=== PATIENT | male | born 1935 | race Caucasian/White ===

== ENCOUNTER → 2017-04-07 | Outpatient (CLI) | payer MEDICARE ==
[2017-04-07 12:33] LABS: MEAN CELL VOLUME 93.7 fL (80-100); MEAN CORPUSCULAR HEMOGLOBIN 30.2 pg (25-34); MEAN CORPUSCULAR HGB CONC 32.2 g/dl (32-36); MEAN PLATELET VOLUME 10.7 fL (7.4-10.4); PLATELET COUNT 208 K/uL (130-400); RED BLOOD COUNT 5.23 M/uL (4.7-6.1); WHITE BLOOD COUNT 9.13 K/uL (4.8-10.8)
[2017-04-07 13:29] LABS: ESTIMATED AVERAGE GLUCOSE 128 mg/dl; HA1C FLAG Normal (Normal)
[2017-04-07 16:03] LABS: ALKALINE PHOSPHATASE 68 U/L (45-117); ALT/SGPT 17 U/L (12-78); AST/SGOT 14 U/L (15-37); BLOOD UREA NITROGEN 15 mg/dl (7-18); BUN/CREATININE RATIO 13.9 (10-20); CALCIUM 8.5 mg/dl (8.5-10.1); CARBON DIOXIDE 27 mmol/L (21-32); CHLORIDE 109 mmol/L (98-107); CREATININE 1.08 mg/dl (0.60-1.40); GLUCOSE,FASTING 88 mg/dl (70-99); HDL CHOLESTEROL 49 mg/dl; MAGNESIUM 2.1 mg/dl (1.8-2.4); POTASSIUM 4.1 mmol/L (3.5-5.1); SODIUM 142 mmol/L (136-145)
[2017-04-07 16:08] LABS: CHOLESTEROL 127 mg/dl (0-200); CHOLESTEROL/HDL RATIO 2.6; TRIGLYCERIDES 79 mg/dl (0-150); VERY LOW DENSITY LIPOPROT CALC 16 mg/dl
== END | disposition home or self-care (01) ==
LOC: C.LABPBG 08:56
PROVIDERS: ATTEND Internal Medicine Cardiovascular Disease
DX: I49.8 Other specified cardiac arrhythmias (principal); I25.10 Atherosclerotic heart disease of native coronary artery without angina pectoris; R06.02 Shortness of breath; I47.1 Supraventricular tachycardia; R00.2 Palpitations

== ENCOUNTER → 2017-05-05 | Outpatient (CLI) | payer MEDICARE ==
[2017-05-05 12:48] LABS: BLOOD UREA NITROGEN 14 mg/dl (7-18); BUN/CREATININE RATIO 12.7 (10-20); CALCIUM 9.1 mg/dl (8.5-10.1); CARBON DIOXIDE 30 mmol/L (21-32); CHLORIDE 104 mmol/L (98-107); CREATININE 1.07 mg/dl (0.60-1.40); GLUCOSE 104 mg/dl (70-99); MAGNESIUM 2.3 mg/dl (1.8-2.4); POTASSIUM 4.1 mmol/L (3.5-5.1); SODIUM 141 mmol/L (136-145)
== END | disposition home or self-care (01) ==
LOC: C.LABPBG 09:27
PROVIDERS: ATTEND Internal Medicine Cardiovascular Disease
DX: E78.5 Hyperlipidemia, unspecified (principal); R06.02 Shortness of breath; Z79.899 Other long term (current) drug therapy

== ENCOUNTER → 2017-08-04 | Outpatient (CLI) | payer MEDICARE ==
[2017-08-04 12:33] LABS: HEMATOCRIT 50.6 % (42-52); HEMOGLOBIN 16.4 g/dL (14.0-18.0); MEAN CORPUSCULAR HEMOGLOBIN 31.1 pg (25-34); MEAN CORPUSCULAR HGB CONC 32.4 g/dl (32-36); MEAN PLATELET VOLUME 10.7 fL (7.4-10.4); PLATELET COUNT 170 K/uL (130-400); RED CELL DISTRIBUTION WIDTH SD 56.6 fL (36.4-46.3); WHITE BLOOD COUNT 10.27 K/uL (4.8-10.8)
[2017-08-04 13:14] LABS: HEMOGLOBIN A1C 6.2 % (4.5-5.6)
[2017-08-04 13:25] LABS: ALBUMIN 3.3 gm/dl (3.4-5.0); ALT/SGPT 22 U/L (12-78); AST/SGOT 13 U/L (15-37); BLOOD UREA NITROGEN 13 mg/dl (7-18); CALCIUM 8.6 mg/dl (8.5-10.1); CARBON DIOXIDE 29 mmol/L (21-32); CHOLESTEROL 134 mg/dl (0-200); CREATININE 1.07 mg/dl (0.60-1.40); GLUCOSE,FASTING 84 mg/dl (70-99); POTASSIUM 3.8 mmol/L (3.5-5.1); SODIUM 141 mmol/L (136-145)
[2017-08-04 13:33] LABS: ALKALINE PHOSPHATASE 66 U/L (45-117); LDL CHOLESTEROL (DIRECT) 74 mg/dl; TOTAL PROTEIN 7.2 gm/dl (6.4-8.2)
== END | disposition home or self-care (01) ==
LOC: C.LABPBG 08:23
PROVIDERS: ATTEND Internal Medicine Cardiovascular Disease
DX: Z79.899 Other long term (current) drug therapy (principal); E78.5 Hyperlipidemia, unspecified; I10 Essential (primary) hypertension

== ENCOUNTER 2021-07-15 22:43 | Observation (INO) ==
[2021-07-15] MEDS ORDERED: methylPREDNISolone 125 MG/2 ML VIAL IV STA (22:59)
[2021-07-15] MEDS ORDERED: ALBUT/IPRATROP 3MG/0.5MG NEB 3 ML VIAL NEB STA (22:59)
[2021-07-15] MEDS ORDERED: NICOTINE 14 MG/24 HR PATCH TD STA (23:05)
[2021-07-15 23:22] LABS: Basophils # (auto) 0.01 K/uL (0-0.2); Basophils % (auto) 0.2 %; Eosinophils # (auto) 0.13 K/uL (0-0.5); Hematocrit (blood only) 30.3 % (42-52); Immature Granulocytes # (auto) 0.02 K/uL (0.00-0.02); Immature Granulocytes % (auto) 0.3 %; Lymphocytes # (auto) 1.13 K/uL (1.2-3.4); Lymphocytes % (auto) 17.3 %; Mean Corpuscular Hemoglobin 26.5 pg (25-34); Mean Corpuscular Hgb Conc 29.7 g/dL (32-36); Mean Corpuscular Volume 89.1 fL (80-100); Mean Platelet Volume 9.8 fL (7.4-10.4); Monocytes % (auto) 7.7 %; Neutrophils # (auto) 4.74 K/uL (1.4-6.5); Neutrophils % (auto) 72.5 %; Platelet Count 250 K/uL (130-400); RDW Coefficient of Variation 18.5 % (11.5-14.5); RDW Standard Deviation 59.7 fL (36.4-46.3); White Blood Count 6.53 K/uL (4.8-10.8)
--- NOTE | 2021-07-15 23:37 | XRay Report ---
XR chest 1V portable CLINICAL HISTORY: Chest Pain. COMPARISON STUDY: 03/09/2021 TECHNIQUE: 1 view of the chest FINDINGS: Single frontal view of the chest demonstrates the heart to again be enlarged status post previous car diothoracic surgery and pacer placement. Patchy alveolar and interstitial opacities are seen at both lung bases. Findings are most characteristic of by basilar atelectasis. The presence of pneumonia is less likely. There is no evidence for pleural effusion. There is no evidence for vascular congestion. There is no acute osseous pathology. IMPRESSION: Cardiomegaly with bibasilar atelectasis. Follow-up PA and lateral radiographs with deeper inspiration recommended. ACT 112: Negative or not required by law. Electronically signed by: Fab Merida M.D. 07/15/2021 11:35 PM
[2021-07-15] MEDS ORDERED: MoRPHine SULFATE 4 MG/ML 1 ML CARP\\VIAL IV STA (23:40)
[2021-07-15 23:44] LABS: Troponin I < 0.03 ng/ml (0-0.04)
[2021-07-15 23:53] LABS: Alanine Aminotransferase 4 U/L (7-52); Albumin Globulin Ratio 0.7 (0.9-2); Albumin Level 2.5 gm/dl (3.4-5.0); Alkaline Phosphatase 76 U/L (34-104); Anion Gap 3 (3-11); Aspartate Aminotransferase 8 U/L (13-39); BUN Creatinine Ratio 18.3 (10-20); Bilirubin,Total 0.5 mg/dl (0.2-1.0); Blood Urea Nitrogen 20 mg/dl (6-23); Calcium 8.7 mg/dl (8.5-10.1); Carbon Dioxide 31 mmol/L (21-32); Chloride 101 mmol/L (98-107); Creatinine Clr Calc Pharmacy 68.1 ml/min; Est GFR (African American) 71.9 ml/min; Globulin 3.7 gm/dl (2.5-4.0); Glucose 96 mg/dl (70-99(Fasting)); Potassium 4.1 mmol/L (3.5-5.1); Sodium 135 mmol/L (136-145); Total Protein 6.2 gm/dl (6.0-8.3)
--- NOTE | 2021-07-16 00:29 | Emergency Department Note ---
History of Present Illness General Chief complaint: Shortness of Breath/Dyspnea Stated complaint: SOB Time Seen by Provider: 07/15/21 22:50 History of Present Illness Maximum Pain Intensity: 8 This 85-year-old gentleman who starts hospice tomorrow presents to the ER complaining of worsening shortness of breath Location: Generalized Quality: Hard to breathe Severity: Moderate Duration: Tonight Timing: Tonight Context: Patient's oxygen was in the 70s and family was concerned and called EMS Modifying factors: better with oxygen; worse with activity Patient was discharged from [facility] with a hip fracture placed on hospice. Hospice does not actually start until tomorrow though. Patient was sent home on 10 L O2. The oxygen tank does not go above this per family His sats were in the 70s and family was concerned and called EMS. Patient states he does not want anything done. He only wants comfort measures. Hospice cannot start until tomorrow and patient and family requesting admission until he can begin hospice at home and have the oxygen available. Patient denies chest pain, fever, chills, flulike illness. Patient states he is on Eliquis and has not m issed any doses. Home Medications Medication Instructions Recorded Confirmed Type aspirin 81 mg tablet,delayed 81 mg PO DAILY tab 12/08/18 07/16/21 History release cholecalciferol (vitamin D3) 25 4,000 units PO DAILY tab 12/08/18 07/16/21 History mcg (1,000 unit) tablet ipratropium 0.5 mg-albuterol 3 mg 3 ml INHALATION Q6H PRN ml 12/08/18 07/16/21 History (2.5 mg base)/3 mL nebulization soln albuterol sulfate 90 mcg/actuation 1 puffs INH Q6H PRN 12/10/18 07/16/21 History aerosol inhaler (Ventolin HFA) sodium chloride 5 % eye drops 1 drops OPL BID PRN 12/10/18 07/16/21 History timolol maleate 0.5 % eye drops 1 drops OP BID 12/10/18 07/16/21 History (Timoptic) simvastatin 40 mg tablet 40 mg PO QPM #90 tab 12/16/18 07/16/21 History Oxygen Home #1 ea 07/27/20 06/21/21 Rx loratadine 10 mg tablet (Claritin) 10 mg PO DAILY #90 tab 12/08/20 07/16/21 Rx duloxetine 30 mg capsule,delayed 30 mg PO DAILY #90 cap 12/12/20 07/16/21 Rx release finasteride 5 mg tablet (Proscar) 5 mg PO DAILY #30 tab 12/27/20 07/16/21 Rx diclofenac sodium 1 % topical gel 4 g TOPICAL QID PRN #100 g 01/04/21 07/16/21 Rx (Voltaren Arthritis Pain) nystatin 100,000 unit/gram topical 1 applic TOP .COMPLEX #30 gm 01/04/21 07/16/21 Rx cream atenolol 25 mg tablet 25 mg PO DAILY #90 tab 02/02/21 07/16/21 Rx lisinopril 5 mg tablet 5 mg PO DAILY #90 tab 02/19/21 07/16/21 Rx terazosin 2 mg capsule 2 mg PO DAILY #90 cap 02/28/21 07/16/21 Rx fluticasone fur. 100 mcg-umeclid 1 inh INHALATION DAILY 03/08/21 07/16/21 History 62.5 mcg-vilant 25 mcg inhalat.powder (Trelegy Ellipta) menthol 0.44 %-zinc oxide 20.6 % See Rx Instructions .ROUTE 03/09/21 07/16/21 Hi story topical ointment (Calmoseptine) .COMPLEX PRN nitroglycerin 0.4 mg sublingual 0.4 mg SUBLINGUAL DIRECTED PRN 03/09/21 07/16/21 History tablet (Nitrostat) fluticasone propionate 50 2 spray INTRANASAL DAILY #48 g 04/04/21 07/16/21 Rx mcg/actuation nasal spray,suspension omeprazole 40 mg capsule,delayed 40 mg PO DAILY #90 cap 04/10/21 07/16/21 Rx release nebulizers #1 ea 05/31/21 06/21/21 Rx furosemide 20 mg tablet 20 mg PO DAILY #30 tab 06/01/21 07/16/21 Rx latanoprost 0.005 % eye drops 1 drp OPHTHALMIC (EYE) QPM #7.5 ml 06/01/21 07/16/21 Rx magnesium oxide 500 mg tablet 500 mg PO DAILY #30 tab 06/01/21 07/16/21 Rx potassium chloride 20 mEq 20 meq PO DAILY #30 tab 06/01/21 07/16/21 Rx tablet,extended release Hospital Bed Homecare #1 ea 07/04/21 Rx Mattress (Air or other) #1 ea 07/04/21 Rx hydrocodone 5 mg-acetaminophen 325 1 tab PO Q8H PRN #30 tab 07/06/21 07/16/21 Rx mg tablet nicotine 14 mg/24 hr daily 1 patch TRANSDERMAL DAILY #28 ea 07/06/21 07/16/21 Rx transdermal patch (Nicoderm CQ) apixaban 2.5 mg tablet (Eliquis) 2.5 mg PO BID #60 tab 07/13/21 07/16/21 Rx brimonidine 0.1 % eye drops 1 drp OPB BID 07/16/21 07/16/21 History Allergies Allergy/AdvReac Type Severity Reaction Status Date / Time oxycodone Allergy Severe SHORT OF Verified 07/16/21 00:19 BREATH Past Med/Surg History Medical History (HFpEF) heart failure with preserved ejection fraction AAA (abdominal aortic aneurysm) Acid reflux Arthritis Blindness of left eye BPH (benign prostatic hyperplasia) Chronic anticoagulation Chronic kidney disease, stage 3 (moderate) Chronic obstructive pulmonary disease Chronic respiratory failure Complex renal cyst Constipation Coronary artery disease Degenerative joint disease of knee Dyslipidemia Glaucoma History of myocardial infarction Hypertension Irritable bowel syndrome Lumbar spinal stenosis 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) Mild cognitive impairment JOHNNY (obstructive sleep apnea) Paroxysmal atrial fibrillation Prediabetes Pulmonary nodule Tachycardia-bradycardia syndrome Vitamin D deficiency Surgical History H/O aortic aneurysm repair (01/2004) endovascular repair w/ stent graft History of aortic aneurysm repair (11/05/17) onset: November 05, 2017 Previous repair, 2003; EVAR, Type ll endoleak in October 2017 History of coronary artery bypass graft (~1992) S/P ablation of ventricular arrhythmia (2012) for SVT S/P cardiac pacemaker procedure (02/11/19) [place] dual-chamber S/P cataract surgery S/P coronary artery stent placement Family History Father Cardiac disorder Coronary heart disease Heart disease Mother Gallbladder disease Lung cancer Other Myocardial infarction Denies family history of Ovarian cancer Prostate cancer Breast cancer Colorectal cancer Social History Smoking Status: Current some day smoker Tobacco Type: Cigarettes Cigarettes Per Day: 5 cigars per day; 5-6 cigarettes a day; daily smokeless tobacco use; Hx Alcohol Use: Yes Alcohol Intake Frequency: Monthly or Less Hx Substance Use: No Preferred Language: Latvian Visual Impairment: Diminished Hearing Ability: Hard of Hearing Beliefs That Will Affect Care: None marital status: Current Living Situation: Spouse current occupational status: retired Feels Safe at Home: Yes Childhood Exposure to Second-Hand Smoke: Yes Diet Comment: regular caffeine: Yes during the past year weight has: remained stable Dental Care, Regularly: No Physical Activity Frequency: Does not Exercise Physical Activity Frequency Comment: due to physical activity Seatbelt Use: always Sunscreen Use: No Review of Systems A total of 10 systems reviewed and were otherwise negative Physical Exam Vital Signs Vital Signs - 24 hr 07/15/21 22:30 07/15/21 22:45 07/15/21 23:31 Temperature 36.6 C Temperature Source Oral Pulse Rate 76 Pulse Rate [Apical] Respiratory Rate 24 Respiratory Effort / Characteristics Short of Breath Respiratory Depth Blood Pressure 111/54 L Blood Pressure [Right Arm] Blood Pressure Mean 73 Blood Pressure Mean [Right Arm] Pulse Oximetry 94 94 91 Oxygen Delivery Method Non-rebreather Non-rebreather Non-rebreather Oxygen Flow Rate 15 15 15 Sepsis Recent Fever Within 48 Hours No Sepsis New/Unexplained Change in Mental Status No Sepsis Action Taken by Nursing No Action Required Oxygen Flow Rate - Titration Pulse Oximetry Post Tiitration 07/15/21 23:37 07/16/21 00:30 07/16/21 02:00 Temperature Temperature Source Pulse Rate Pulse Rate [Apical] 70 Respiratory Rate 20 20 Respiratory Effort / Characteristics Non-Labored Spontaneous Respiratory Depth Normal Blood Pressure Blood Pressure [Right Arm] 122/66 121/73 Blood Pressure Mean Blood Pressure Mean [Right Arm] 84 89 Pulse Oximetry 89 L 96 91 Oxygen Delivery Method Oxymask Nebulizer Oxymask Room Air Oxygen Flow Rate 10 15 Sepsis Recent Fever Within 48 Hours Sepsis New/Unexplained Change in Mental Status Sepsis Action Taken by Nursing Oxygen Flow Rate - Titration 15 Pulse Oximetry Post Tiitration 90 VITALS: Vitals are noted on the nurse's note and reviewed by myself. Vital signs patient on oxygen mask 10 L sats are 90%. GENERAL: Elderly male chronically ill-appearing on oxygen. SKIN: The skin was without rashes, erythema, or bruising. There is no tenting of the skin. Capillary reflex less than 2 seconds. HEAD: Normocephalic atraumatic. EARS: External auditory canals clear, EYES: Left eye blind, right pupils equal round and reactive to light and accommodation. Conjunctivae without injection, sclerae without icterus. Extraocular movements intact. NOSE: Patent, turbinates without inflammation or discharge. MOUTH: Mucous membranes moist. Pharynx without erythema or exudate. Uvula midline. Airway patent. Tongue does not deviate. NECK: Supple without nuchal rigidity. No lymphadenopathy. No thyromegaly. Cervical spine is nontender. No JVD. HEART: Regular rate and rhythm LUNGS: Diffuse inspiratory and expiratory wheezes, No retractions or accessory muscle use. ABDOMEN: Positive bowel sounds x 4. Normal tympanic percussion. Soft, nontender, without masses or organomegaly. Irizarry sign negative. No guarding or rebound tenderness. No CVA tenderness MUSCULOSKELETAL: No muscle atrophy, erythema, noted. NEURO: Patient was alert and oriented to person place and time. Normal sensation to light and sharp touch. No focal neurological deficits. Course Administered Medications Discontinued Medications Albuterol (Albut/Ipratrop 3mg/0.5mg Neb 3 Ml Vial) 3 ml NEB NOW STA; Protocol Stop: 07/15/21 23:00 Last Admin: 07/15/21 23:16 Dose: 3 ml Documented by: [id number] Piperacillin Sod/Tazobactam Sod (Zosyn) 4.5 gm in 120 mls @ 240 mls/hr IV NOW ONE Stop: 07/16/21 01:46 Last Infusion: 07/16/21 01:57 Dose: 0 mls/hr Documented by: [id number] Admin: 07/16/21 01:23 Dose: 240 mls/hr Documented by: [id number] Methylprednisolone (Methylprednisolone 125 Mg/2 Ml Vial) 125 mg IV NOW STA Stop: 07/15/21 23:00 Last Admin: 07/15/21 23:17 Dose: 125 mg Documented by: [id number] Morphine Sulfate (Morphine Sulfate 4 Mg/Ml 1 Ml Carp\Vial) 4 mg IV NOW STA Stop: 07/15/21 23:41 Last Admin: 07/15/21 23:47 Dose: 4 mg Documented by: [id number] Nicotine (Nicotine 14 Mg/24 Hr Patch) 14 mg TD NOW STA Stop: 07/15/21 23:06 Last Admin: 07/15/21 23:16 Dose: 14 mg Documented by: [id number] Medical Decision Making Medical Records Attestation: I reviewed the patient's medical records. Home Medications Current Medication List: was personally reviewed by me Laboratory Data Attestation: I reviewed the patient's lab results. Result diagrams: 07/15/21 23:00 07/15/21 23:00 Lab Results 07/15/21 07/15/21 07/15/21 Range/Units 23:00 23:00 23:05 WBC 6.53 (4.8-10.8) K/uL RBC 3.40 L (4.7-6.1) M/uL Hgb 9.0 L (14.0-18.0) g/dL Hct 30.3 L (42-52) % MCV 89.1 (80-100) fL MCH 26.5 (25-34) pg MCHC 29.7 L (32-36) g/dL RDW Std Deviation 59.7 H (36.4-46.3) fL RDW Coeff of Eric 18.5 H (11.5-14.5) % Plt Count 250 (130-400) K/uL MPV 9.8 (7.4-10.4) fL Immature Gran % (Auto) 0.3 % Neut % (Auto) 72.5 % Lymph % (Auto) 17.3 % [place] % (Auto) 7.7 % Eos % (Auto) 2.0 % Baso % (Auto) 0.2 % Neut # (Auto) 4.74 (1.4-6.5) K/uL Lymph # (Auto) 1.13 L (1.2-3.4) K/uL [place] # (Auto) 0.50 (0.11-0.59) K/uL Eos # (Auto) 0.13 (0-0.5) K/uL Baso # (Auto) 0.01 (0-0.2) K/uL Immature Gran # (Auto) 0.02 (0.00-0.02) K/uL Sodium 135 L (136-145) mmol/L Potassium 4.1 (3.5-5.1) mmol/L Chloride 101 (98-107) mmol/L Carbon Dioxide 31 (21-32) mmol/L Anion Gap 3 (3-11) BUN 20 (6-23) mg/dl Creatinine 1.09 (0.6-1.4) mg/dl Est Cr Clr Drug Dosing 68.1 ml/min Est GFR ( Amer) 71.9 ml/min Est GFR (Non-Af Amer) 62.0 ml/min BUN/Creatinine Ratio 18.3 (10-20) Glucose 96 (70-99(Fasting)) mg/dl Calcium 8.7 (8.5-10.1) mg/dl Total Bilirubin 0.5 (0.2-1.0) mg/dl AST 8 L (13-39) U/L ALT 4 L (7-52) U/L Alkaline Phosphatase 76 (34-104) U/L Troponin I < 0.03 (0-0.04) ng/ml Total Protein 6.2 (6.0-8.3) gm/dl Albumin 2.5 L (3.4-5.0) gm/dl Globulin 3.7 (2.5-4.0) gm/dl Albumin/Globulin Ratio 0.7 L (0.9-2) SARS-CoV-2, RNA, NAAT NEGATIVE (NEGATIVE) Imaging Data Attestation: I personally reviewed and interpreted this imaging study as follows: Radiologist's Impression: Chest X-Ray 07/15/21 22:59 XR chest 1V portable CLINICAL HISTORY: Chest Pain. COMPARISON STUDY: 03/09/2021 TECHNIQUE: 1 view of the chest FINDINGS: Single frontal view of the chest demonstrates the heart to again be enlarged status post previous cardiothoracic surgery and pacer placement. Patchy alveolar and interstitial opacities are seen at both lung bases. Findings are most characteristic of by basilar atelectasis. The presence of pneumonia is less likely. There is no evidence for pleural effusion. There is no evidence for vascular congestion. There is no acute osseous pathology. IMPRESSION: Cardiomegaly with bibasilar atelectasis. Follow-up PA and lateral radiographs with deeper inspiration recommended. ACT 112: Negative or not required by law. Electronically signed by: Fab Merida M.D. 07/15/2021 11:35 PM MDM Narrative Prior records/ancillary studies reviewed. Triage Nursing notes reviewed. Additional history obtained from the family. The patient's history was concerning for respiratory difficulties. Differential diagnosis: Etiologies such as infections, reactive airway disease, pneumonia, pneumothorax, COPD, CHF, cardiac ischemia, pulmonary embolism, musculoskeletal, gastrointestinal, as well as others were entertained. Physical examination: As above. ER treatment provided: An order was placed for continuous cardiac monitoring. The monitor shows a rate of 60-1 20 with a paced rhythm. Solu-Medrol, nebulizer, Zosyn On reassessment the patient felt better. Diagnostic interpretation by me: The electrocardiogram was ordered for dyspnea EKG: Paced rhythm with no acute ST-T wave changes. Rate of 76. Impression paced rhythm interpreted by myself The labs revealed negative troponin, negative Covid Imaging studies: Chest x-ray as above Consultation: A consultation was placed with the hospitalist. The case was discussed and diagnostics were reviewed. The patient was evaluated in the ER for further treatment. This appears to be consistent with end-stage COPD with possible aspiration pneumonia. Medicine was consulted. He will be evaluated for possible admission pending hospice placement. Patient and family are agreeable. Patient is a DNR/DNI. This was reviewed with him. By the evaluation outlined above emergent etiologies such as CHF, cardiac ischemia, pulmonary embolism, reactive airway disease, pneumothorax, musculoskeletal, serious bacterial infections, as well as others were deemed relatively unlikely. The pt informed about the findings as listed above. All questions were answered and pleased with the treatment. The chart was completed utilizing [employer] Speech voice recognition software. Grammatical errors, random word insertions, pronoun errors, and incomplete sentences are an occassional consequence of this system due to software limitations, ambient noise, and hardware issues. Any formal questions or concerns about the content, text, or information contained within the body of this dictation should be directly addressed to the physician service center assistant for clarification. Impression & Plan Acute exacerbation of chronic obstructive airways disease Discharge Plan Visit Data Chief Complaint: Shortness of Breath/Dyspnea Stated Complaint: SOB ED Provider: Eliseo Olivera ED Midlevel Provider: Shakira Andersen Discharge Problem: Acute exacerbation of chronic obstructive airways disease Patient Disposition: Admitted As Inpatient Condition: Fair Forms Stand Alone Forms: [employer] [facility] Prescriptions Prescriptions: No Action simvastatin 40 mg tablet 40 mg PO QPM Qty: 90 RF: 0 loratadine [Claritin] 10 mg tablet 10 mg PO DAILY Qty: 90 RF: 2 duloxetine 30 mg capsule,delayed release(DR/EC) 30 mg PO DAILY Qty: 90 RF: 3 finasteride [Proscar] 5 mg tablet 5 mg PO DAILY Qty: 30 RF: 5 atenolol 25 mg tablet 25 mg PO DAILY Qty: 90 RF: 3 lisinopril 5 mg tablet 5 mg PO DAILY Qty: 90 RF: 3 terazosin 2 mg capsule 2 mg PO DAILY Qty: 90 RF: 1 fluticasone propionate 50 mcg/actuation spray,suspension 2 spray intranasal DAILY Qty: 48 RF: 2 omeprazole 40 mg capsule,delayed release(DR/EC) 40 mg PO DAILY Qty: 90 RF: 3 (DME) nebulizers Misc See Rx Instructions .Route Qty: 1 RF: 0 latanoprost 0.005 % drops 1 drp ophthalmic (eye) QPM Qty: 7.5 RF: 2 magnesium oxide 500 mg tablet 500 mg PO DAILY Qty: 30 RF: 0 furosemide 20 mg tablet 20 mg PO DAILY Qty: 30 RF: 2 potassium chloride 20 mEq tablet extended release 20 meq PO DAILY Qty: 30 RF: 2 (DME) Mattress (Air or other) Misc See Rx Instructions .Route Qty: 1 RF: 0 (DME) Hospital Bed Homecare Misc See Rx Instructions .Route Qty: 1 RF: 0 nicotine [Nicoderm CQ] 14 mg/24 hr patch 24 hour 1 patch transdermal DAILY Qty: 28 RF: 0 hydrocodone-acetaminophen 5-325 mg tablet 1 tab PO Q8H PRN (Reason: pain) Qty: 30 RF: 0 Eliquis 2.5 mg tablet 2.5 mg PO BID Qty: 60 RF: 5 aspirin 81 mg tablet,delayed release (DR/EC) 81 mg PO DAILY RF: 0 cholecalciferol (vitamin D3) 1,000 unit tablet 4,000 units PO DAILY RF: 0 timolol maleate [Timoptic] 0.5 % drops 1 drops OP BID RF: 0 sodium chloride 5 % drops 1 drops OPL BID PRN (Reason: dry eye(s)) RF: 0 albuterol sulfate [Ventolin HFA] 90 mcg/actuation HFA aerosol inhaler 1 puffs INH Q6H PRN (Reason: Shortness Of Breath) RF: 0 ipratropium-albuterol 0.5 mg-3 mg(2.5 mg base)/3 mL solution for nebulization 3 ml inhalation Q6H PRN (Reason: shortness of breath or wheezing) RF: 0 Trelegy Ellipta 100-62.5-25 mcg blister with device 1 inh inhalation DAILY RF: 0 (DME) Oxygen Home Liters Per Minute See Dose Instructions .ROUTE .MEDSUPPLY Qty: 1 RF: 0 nystatin 100,000 unit/gram cream 1 applic TOP .COMPLEX Qty: 30 RF: 5 diclofenac sodium [Voltaren Arthritis Pain] 1 % gel 4 g topical QID PRN (Reason: pain) Qty: 100 RF: 2 brimonidine 0.1 % drops 1 drp OPB BID RF: 0 nitroglycerin [Nitrostat] 0.4 mg Tablet, Sublingual 0.4 mg sublingual DIRECTED PRN (Reason: Chest Pain) RF: 0 menthol-zinc oxide [Calmoseptine] 0.44-20.6 % ointment See Rx Instructions .ROUTE .COMPLEX PRN (Reason: Skin Irritation) RF: 0 Referrals Referrals: Renetta Chirinos DO [Primary Care Provider] -
[2021-07-16] MEDS ORDERED: PIPERACILL/TAZOBAC CONSULT ACTIVE PRN (01:17)
[2021-07-16] MEDS ORDERED: PIPERACILLIN/TAZOBACTAM 4.5 GM/120 ML BAG IV ONE (01:17)
--- NOTE | 2021-07-16 01:53 | History & Physical Report ---
Date of Service July 16, 2021 Assessment & Plan (1) Acute and chronic respiratory failure with hypoxia: Plan: 85 y/o M w/ PMHx of end-stage COPD, pacemaker, CKD3, pAF, HFpEF, CAD s/p CABG, JOHNNY, HTN, HLD, AAA who presents w/ worsened dyspnea since yesterday and has had increased O2 requirement, requiring more than the max of 10L he is able to use per home device. Considered COPD exacerbation vs CHF exac vs aspiration pneumonia. Per my exam, most suggestive of CHF exac vs COPD exac. Procal .11. Per hx of end stage COPD, has low threshold for exac. Patient denying aspiration concerns. Also considered post-cvoid inflamm. Flutter valve. nebulized hypertonic saline. Incentive spirom. Mucinex. Flonase for nasal congestion. Continue Zosyn. Diurese. recheck echo in AM. can BNP now, diurese if elevated. CXR PA/Lat when able nasal spray goals of care discussion: Wants treatment. Wants ortho eval. Hopeful that if resp status improves via treatment above, may be able to undergo hip fracture surgery. Updated daughter on plan who agrees w/ attempting treatment. Contact number: Kelly Red [phone]. (2) Hip fracture: Plan: No pain to palpation of hips. XR pelvis. Consult ortho. (3) Chronic anticoagulation: Plan: Home eliquis held while awaiting ortho eval. (4) Chronic kidney disease, stage 3 (moderate): Plan: Avoid nephrotoxic agents. Cr at baseline. (5) Paroxysmal atrial fibrillation: Plan: Not currently in afib. Ventricular pacemaker paced. (6) History of coronary artery bypass graft: Plan: Stable (7) Hypertension: Plan: Continue home regimen except hold lisinopril; reviewed blood pressures. CKD at baseline, but will be diuresing. (8) Macular degeneration: Plan: Continue home eyedrops. Plan: FEN: low NA, HH. No IV fluids. ppx: holding home eliquis. SQ heparin 5000u q8h for dvt ppx only while awaiting orhto eval. code: DNR/DNI dispo: med tele History of Present Illness Chief Complaint: hypoxia Primary Care Provider: Renetta Chirinos DO 85 y/o M w/ PMHx of end-stage COPD, pacemaker, CKD3, pAF, HFpEF, CAD s/p CABG, JOHNNY, HTN, HLD, AAA who presents w/ worsened dyspnea since yesterday and has had increased O2 requirement, requiring more than the max of 10L he is able to use per home device. He had been sent home on 10L after discharge from [facility] for covid pneumonia. Initial plan was consideration of home hospice in the future, partly because had L hip fracture and was thought not amenable to surgery in consideration of his resp status. Patient had improvement in resp status at home and had exacerbation yesterday. Patient denies aspirating. His previous baseline was 2-3L home O2. He has had covid immunization x2. Clarification per daughter Kelly by phone. 2 wks of 10L O2 since the [facility] discharge. Patient States has not smoked in 1 month. Allergies Allergy/AdvReac Type Severity Reaction Status Date / Time oxycodone Allergy Severe SHORT OF Verified 07/16/21 00:19 BREATH Home Medications Medication Instructions Recorded Confirmed Type ipratropium 0.5 mg-albuterol 3 mg 3 ml INHALATION Q6H PRN ml 12/08/18 07/16/21 History (2.5 mg base)/3 mL nebulization soln albuterol sulfate 90 mcg/actuation 1 puffs INH Q6H PRN 12/10/18 07/16/21 History aerosol inhaler (Ventolin HFA) sodium chloride 5 % eye drops 1 drops OPL BID PRN 12/10/18 07/16/21 History timolol maleate 0.5 % eye drops 1 drops OP BID 12/10/18 07/16/21 History (Timoptic) Oxygen Home #1 ea 07/27/20 06/21/21 Rx loratadine 10 mg tablet (Claritin) 10 mg PO DAILY #90 tab 12/08/20 07/16/21 Rx duloxetine 30 mg capsule,delayed 30 mg PO DAILY #90 cap 12/12/20 07/16/21 Rx release diclofenac sodium 1 % topical gel 4 g TOPICAL QID PRN #100 g 01/04/21 07/16/21 Rx (Voltaren Arthritis Pain) nystatin 100,000 unit/gram topical 1 applic TOP .COMPLEX #30 gm 01/04/21 07/16/21 Rx cream menthol 0.44 %-zinc oxide 20.6 % See Rx Instructions .ROUTE 03/09/21 07/16/21 History topical ointment (Calmoseptine) .COMPLEX PRN fluticasone propionate 50 2 spray INTRANASAL DAILY #48 g 04/04/21 07/16/21 Rx mcg/actuation nasal spray,suspension nebulizers #1 ea 05/31/21 06/21/21 Rx latanoprost 0.005 % eye drops 1 drp OPHTHALMIC (EYE) QPM #7.5 ml 06/01/21 07/16/21 Rx Hospital Bed Homecare #1 ea 07/04/21 Rx Mattress (Air or other) #1 ea 07/04/21 Rx nicotine 14 mg/24 hr daily 1 patch TRANSDERMAL DAILY #28 ea 07/06/21 07/16/21 Rx transdermal patch (Nicoderm CQ) brimonidine 0.1 % eye drops 1 drp OPB BID 07/16/21 07/16/21 History glycopyrrolate 1 mg/5 mL (0.2 1 mg PO TID #50 ml 07/18/21 Rx mg/mL) oral solution haloperidol 0.5 mg tablet 0.5 mg PO Q6H #10 tab 07/18/21 Rx lorazepam 0.5 mg tablet 0.5 mg PO Q4H PRN #12 tab 07/18/21 Rx morphine 20 mg/5 mL (4 mg/mL) oral 5 mg PO Q4H #100 ml 07/18/21 Rx solution prednisone 10 mg tablet See Rx Instructions .ROUTE 07/18/21 Rx .COMPLEX #20 tab promethazine 12.5 mg rectal 12.5 mg VT TID PRN #12 ea 07/18/21 Rx suppository Past Med/Surg History Medical History (HFpEF) heart failure with preserved ejection fraction AAA (abdominal aortic aneurysm) Acid reflux Arthritis Blindness of left eye BPH (benign prostatic hyperplasia) Chronic anticoagulation Chronic kidney disease, stage 3 (moderate) Chronic obstructive pulmonary disease Chronic respiratory failure Complex renal cyst Constipation Coronary artery disease Degenerative joint disease of knee Dyslipidemia Glaucoma History of myocardial infarction Hypertension Irritable bowel syndrome Lumbar spinal stenosis 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) Mild cognitive impairment JOHNNY (obstructive sleep apnea) Paroxysmal atrial fibrillation Prediabetes Pulmonary nodule Tachycardia-bradycardia syndrome Vitamin D deficiency Surgical History H/O aortic aneurysm repair (01/2004) endovascular repair w/ stent graft History of aortic aneurysm repair (11/05/17) onset: November 05, 2017 Previous repair, 2003; EVAR, Type ll endoleak in October 2017 History of coronary artery bypass graft (~1992) S/P ablation of ventricular arrhythmia (2012) for SVT S/P cardiac pacemaker procedure (02/11/19) [place] dual-chamber S/P cataract surgery S/P coronary artery stent placement Family History Father Cardiac disorder Coronary heart disease Heart disease Mother Gallbladder disease Lung cancer Other Myocardial infarction Denies family history of Ovarian cancer Prostate cancer Breast cancer Colorectal cancer Social History Smoking Status: Current some day smoker Tobacco Type: Cigarettes Cigarettes Per Day: 5 cigars per day; 5-6 cigarettes a day; daily smokeless tobacco use; Hx Alcohol Use: Yes Alcohol type: beer Alcohol Intake Frequency: Monthly or Less Hx Substance Use: No Preferred Language: Turkmen Communication Ability: Effective Visual Impairment: Diminished Hearing Ability: Hard of Hearing Tobacco Weigher Required: No Beliefs That Will Affect Care: None marital status: Current Living Situation: Family current occupational status: retired Feels Safe at Home: Yes Childhood Exposure to Second-Hand Smoke: Yes Diet Comment: regular caffeine: Yes during the past year weight has: remained stable Dental Care, Regularly: No Physical Activity Frequency: Does not Exercise Physical Activity Frequency Comment: due to physical activity Seatbelt Use: always Sunscreen Use: No Assistive Devices: Oxygen - Continuous Review of Systems Review of Systems: All systems reviewed & are unremarkable except as noted in HPI & below Constitutional: Denies fever, chills, weight change Eyes: Denies blurry vision, vision changes ENT: Denies sore throat, sinus pain Cardiovascular: Denies chest pain, palpitations Respiratory: Denies shortness of breath Gastrointestinal: Denies abdominal pain, nausea, vomiting, constipation, diarrhea Genitourinary: Denies urinary symptoms including dysuria Musculoskeletal: Denies weakness, muscle aches/pain, joint aches/pain Neurological: Denies headache, numbness, tingling, focal weakness Physical Exam Physical Exam: General: A&Ox4 to person, place, time, and context. NAD. Cooperative. HEENT: Atraumatic, normocephalic. EOMI. Chronic blindness. R pupil fixed. L pupil could not visualize. cataracts. states has macular degeneration and glaucoma. + significant JVD and hepatojugular reflux on R. Pulm: Quite diminished lung sounds. Slight coarseness on exp. R side w/ transmitted upper airway sounds and some rhonchi on expiration. No respiratory distress. Cardiac: RRR, -mrg. Radial pulses intact and symmetrical. No LE edema. Abdominal: Nontender, nondistended, soft. Msk: Moving all extremities. Neuro: Sensation of extrem intact. Results & Data Results & Data ([facility]) Vital Signs (Past 12 Hours) Vital Signs Temp Pulse Pulse Resp BP BP Pulse Ox 07/16/21 00:30 70 20 122/66 96 07/15/21 23:37 89 L 07/15/21 23:31 91 07/15/21 22:45 94 07/15/21 22:30 36.6 C 76 24 111/54 L 94 Laboratory Results wbc 6.53. Hb 9.0, baseline 11s. Na 135. K 4.1. Cr 1.09, at baseline. covid neg. 07/13/19 formerly [facility], 1928–1983 admission for fluid overload. 03/30/20 echo w/ EF 40-45. Global LV hypokinesis. 4 chamber dilatation. LVH. TI. Moderate pulm htn. 07/15/21 23:00 07/15/21 23:00 Cardiac Enzymes 07/15/21 Range/Units 23:00 AST 8 L (13-39) U/L Troponin I < 0.03 (0-0.04) ng/ml CBC 07/15/21 Range/Units 23:00 WBC 6.53 (4.8-10.8) K/uL RBC 3.40 L (4.7-6.1) M/uL Hgb 9.0 L (14.0-18.0) g/dL Hct 30.3 L (42-52) % Plt Count 250 (130-400) K/uL Neut # (Auto) 4.74 (1.4-6.5) K/uL Lymph # (Auto) 1.13 L (1.2-3.4) K/uL [place] # (Auto) 0.50 (0.11-0.59) K/uL Eos # (Auto) 0.13 (0-0.5) K/uL Baso # (Auto) 0.01 (0-0.2) K/uL Comprehensive Metabolic Panel 07/15/21 Range/Units 23:00 Sodium 135 L (136-145) mmol/L Potassium 4.1 (3.5-5.1) mmol/L Chloride 101 (98-107) mmol/L Carbon Dioxide 31 (21-32) mmol/L BUN 20 (6-23) mg/dl Creatinine 1.09 (0.6-1.4) mg/dl Glucose 96 (70-99(Fasting)) mg/dl Calcium 8.7 (8.5-10.1) mg/dl AST 8 L (13-39) U/L ALT 4 L (7-52) U/L Alkaline Phosphatase 76 (34-104) U/L Total Protein 6.2 (6.0-8.3) gm/dl Albumin 2.5 L (3.4-5.0) gm/dl Intake and Output 07/15/21 07/15/21 07/16/21 14:59 22:59 06:59 Intake Total 120 / 120 Balance 120 / 120 Intake: IV 120 / 120 Piperacillin/Tazobactam 4.5 gm 120 / 120 In 120 ml @ 240 mls/hr IV NOW ONE Rx#:[id number] Other: Weight 115.2 kg Weight Measurement Method Built in [facility] Patient Weight 07/16/21 06:59 Weight 115.2 kg Diagnostic Findings Chest X-Ray 07/15/21 22:59 XR chest 1V portable CLINICAL HISTORY: Chest Pain. COMPARISON STUDY: 03/09/2021 TECHNIQUE: 1 view of the chest FINDINGS: Single frontal view of the chest demonstrates the heart to again be enlarged status post previous cardiothoracic surgery and pacer placement. Patchy alveolar and interstitial opacities are seen at both lung bases. Findings are most characteristic of by basilar atelectasis. The presence of pneumonia is less likely. There is no evidence for pleural effusion. There is no evidence for v ascular congestion. There is no acute osseous pathology. IMPRESSION: Cardiomegaly with bibasilar atelectasis. Follow-up PA and lateral radiographs with deeper inspiration recommended. ACT 112: Negative or not required by law. Electronically signed by: Fab Merida M.D. 07/15/2021 11:35 PM ECG Additional Comments: ecg: ventricular paced rhythm. Code Status & VTE Plan Code Status DNR/DNI VTE Prophylaxis Plan VTE Prophylaxis will be ordered: Yes Supervising Physician Co-Signing Physician Notes Acute on chronic respiratory failure with hypoxia/COPD exacerbation/CHF exacerbation- COPD exacerbation- Methylprednisolone 40 mg IV every 8 hours Zosyn 4.5 g IV every 8 hours Duonebs every 4 hours while awake and every 2 hours when necessary. Flonase Guaifenesin extended release 1200 mg p.o. twice daily Monitor for possible aspiration CHF/PAF/hypertension/CABG/ventricular pacer- Continue aspirin, atenolol, Terazosin, apixaban, furosemide and potassium Hold lisinopril Follow serial BMP, magnesium and troponin levels Remaining orders and notations as noted Resident Activity Tracking Resident Involvement: Resident Care Provided Care Provided: Adult Hospital Medicine
[2021-07-16] MEDS ORDERED: FUROSEMIDE 40 MG/4 ML VIAL IV ONE (05:33)
[2021-07-16] MEDS ORDERED: ONDANSETRON INJ 2 MG/ML 2 ML VIAL IV PRN (06:36)
[2021-07-16] MEDS ORDERED: NITROGLYCERIN SL 0.4 MG/TAB TAB SL PRN (06:36)
[2021-07-16] MEDS ORDERED: ACETAMINOPHEN 325 MG TAB PO PRN (06:36)
[2021-07-16] MEDS ORDERED: POLYETHYLENE (MIRALAX) 17 GM PACK PO PRN (06:36)
[2021-07-16] MEDS ORDERED: SODIUM CHLORIDE 5% OP SOLN 15 ML BTL OPL PRN (06:36)
[2021-07-16] MEDS ORDERED: ALUMINUM/MAGNESIUM SUSP 30 ML UDC PO PRN (06:36)
[2021-07-16] MEDS ORDERED: DICLOFENAC SOD 1% GEL 100 GM TUBE EXT PRN (06:36)
[2021-07-16] MEDS ORDERED: ALBUTEROL 0.083% NEBU SOLN 3 ML VIAL NEB PRN (06:36)
[2021-07-16 07:09] LABS: Hematocrit (blood only) 32.3 % (42-52); Hemoglobin 9.6 g/dL (14.0-18.0); Immature Granulocytes # (auto) 0.02 K/uL (0.00-0.02); Immature Granulocytes % (auto) 0.4 %; Lymphocytes # (auto) 0.48 K/uL (1.2-3.4); Lymphocytes % (auto) 8.8 %; Mean Corpuscular Hemoglobin 26.2 pg (25-34); Mean Corpuscular Hgb Conc 29.7 g/dL (32-36); Mean Platelet Volume 10.1 fL (7.4-10.4); Monocytes # (auto) 0.07 K/uL (0.11-0.59); Monocytes % (auto) 1.3 %; Neutrophils # (auto) 4.91 K/uL (1.4-6.5); Neutrophils % (auto) 89.5 %; Platelet Count 284 K/uL (130-400); RDW Coefficient of Variation 18.1 % (11.5-14.5); RDW Standard Deviation 57.8 fL (36.4-46.3); Red Blood Count 3.67 M/uL (4.7-6.1); White Blood Count 5.48 K/uL (4.8-10.8)
[2021-07-16] MEDS: ALBUT/IPRATROP 3MG/0.5MG NEB 3 ML VIAL NEB SCH ×4 (07:12→19:53)
[2021-07-16] MEDS: SODIUM CHLOR 7% 4 ML NEB NEB SCH ×2 (07:22→19:53)
[2021-07-16] MEDS ORDERED: FLUTICASONE PROPIONATE NA SPR 16 GM BTL NAE PRN (07:28)
[2021-07-16 07:33] LABS: Albumin Globulin Ratio 0.7 (0.9-2); Albumin Level 2.7 gm/dl (3.4-5.0); BUN Creatinine Ratio 19.3 (10-20); Bilirubin,Total 0.5 mg/dl (0.2-1.0); Creatinine Clr Calc Pharmacy 65.1 ml/min; Est GFR (African American) 68.1 ml/min; Est GFR (Non-African American) 58.7 ml/min; Magnesium 1.8 mg/dl (1.7-2.4); Potassium 4.5 mmol/L (3.5-5.1); Total Protein 6.7 gm/dl (6.0-8.3)
[2021-07-16] MEDS ORDERED: PIPERACILLIN/TAZOBACTAM 3.375 GM in DEXTROSE 5% 100 ML IV SCH (08:00)
--- NOTE | 2021-07-16 09:26 | Orthopedic Consultation ---
Date of Consultation July 16, 2021 Assessment & Plan (1) Intertrochanteric fracture of left hip: Recommend conservative, non-operative management at this time due to the patients medical status and wishes Continue NWB left lower extremity. Bedrest and wheelchair. Ice to affect area Pain control per primary DVT prophylaxis per primary PT/OT - work on transfers and gentle, passive range of motion Patient should follow up with orthopedics two weeks after discharge Will discuss with attending Supervising Physician Co-Signing Physician Notes I saw and examined the patient and agree with the above note. Recommend nonsurgical treatment as surgery would be very high risk in this patient due to his medical comorbidities and the fact that his fracture is 3 weeks old and has started healing in a non-anatomic position. After discussing his diagnosis and what the risks of surgery would be, patient told me convincingly that he does not want surgery. Should the patient and his family change their mind and desire surgery despite it being high risk, they would need to transfer to a tertiary care facility, as treating subacute displaced intertrochanteric femur fracture would be best done by an orthopaedic trauma surgeon. Otherwise, continue with plan as outlined above. History of Present Illness Reason for Consultation: left intertrochanteric femur fracture Attending Physician: Blair Gore MD History of Present Illness Madi is a 88 year old male who presented to the ED for acute on chronic hypoxia. It was noted on films that he had a left intertrochanteric femur fracture. Orthopedics was consulted for further evaluation. The patient fell on 06/25/21 and was previously seen at [facility]. Orthopedics was consulted there, and were planning to surgically fix the fracture with a nail. The patient decompensated during his stay and anesthesia would have had to intubate him for surgery. The patient and his declined intubation and surgery and elected to go home on Hospice care. He has been at home for the past 2 weeks. Today, patient states that he is doing well. His pain is well controlled on his left lower extremity. He reports some dull, achy pain along the lateral aspect of his left thigh. He denies any numbness or tingling. Allergies Allergy/AdvReac Type Severity Reaction Status Date / Time oxycodone Allergy Severe SHORT OF Verified 07/16/21 00:19 BREATH Home Medications Medication Instructions Recorded Confirmed Type aspirin 81 mg tablet,delayed 81 mg PO DAILY tab 12/08/18 07/16/21 History release cholecalciferol (vitamin D3) 25 4,000 units PO DAILY tab 12/08/18 07/16/21 History mcg (1,000 unit) tablet ipratropium 0.5 mg-albuterol 3 mg 3 ml INHALATION Q6H PRN ml 12/08/18 07/16/21 History (2.5 mg base)/3 mL nebulization soln albuterol sulfate 90 mcg/actuation 1 puffs INH Q6H PRN 12/10/18 07/16/21 History aerosol inhaler (Ventolin HFA) sodium chloride 5 % eye drops 1 drops OPL BID PRN 12/10/18 07/16/21 History timolol maleate 0.5 % eye drops 1 drops OP BID 12/10/18 07/16/21 History (Timoptic) simvastatin 40 mg tablet 40 mg PO QPM #90 tab 12/16/18 07/16/21 History Oxygen Home #1 ea 07/27/20 06/21/21 Rx loratadine 10 mg tablet (Claritin) 10 mg PO DAILY #90 tab 12/08/20 07/16/21 Rx duloxetine 30 mg capsule,delayed 30 mg PO DAILY #90 cap 12/12/20 07/16/21 Rx release finasteride 5 mg tablet (Proscar) 5 mg PO DAILY #30 tab 12/27/20 07/16/21 Rx diclofenac sodium 1 % topical gel 4 g TOPICAL QID PRN #100 g 01/04/21 07/16/21 Rx (Voltaren Arthritis Pain) nystatin 100,000 unit/gram topical 1 applic TOP .COMPLEX #30 gm 01/04/21 07/16/21 Rx cream atenolol 25 mg tablet 25 mg PO DAILY #90 tab 02/02/21 07/16/21 Rx lisinopril 5 mg tablet 5 mg PO DAILY #90 tab 02/19/21 07/16/21 Rx terazosin 2 mg capsule 2 mg PO DAILY #90 cap 02/28/21 07/16/21 Rx fluticasone fur. 100 mcg-umeclid 1 inh INHALATION DAILY 03/08/21 07/16/21 History 62.5 mcg-vilant 25 mcg inhalat.powder (Trelegy Ellipta) menthol 0.44 %-zinc oxide 20.6 % See Rx Instructions .ROUTE 03/09/21 07/16/21 History topical ointment (Calmoseptine) .COMPLEX PRN nitroglycerin 0.4 mg sublingual 0.4 mg SUBLINGUAL DIRECTED PRN 03/09/21 07/16/21 History tablet (Nitrostat) fluticasone propionate 50 2 spray INTRANASAL DAILY #48 g 04/04/21 07/16/21 Rx mcg/actuation nasal spray,suspension omeprazole 40 mg capsule,delayed 40 mg PO DAILY #90 cap 04/10/21 07/16/21 Rx release nebulizers #1 ea 05/31/21 06/21/21 Rx furosemide 20 mg tablet 20 mg PO DAILY #30 tab 06/01/21 07/16/21 Rx latanoprost 0.005 % eye drops 1 drp OPHTHALMIC (EYE) QPM #7.5 ml 06/01/21 Rx magnesium oxide 500 mg tablet 500 mg PO DAILY #30 tab 06/01/21 07/16/21 Rx potassium chloride 20 mEq 20 meq PO DAILY #30 tab 06/01/21 07/16/21 Rx tablet,extended release Hospital Bed Homecare #1 ea 07/04/21 Rx Mattress (Air or other) #1 ea 07/04/21 Rx hydrocodone 5 mg-acetaminophen 325 1 tab PO Q8H PRN #30 tab 07/06/21 07/16/21 Rx mg tablet nicotine 14 mg/24 hr daily 1 patch TRANSDERMAL DAILY #28 ea 07/06/21 07/16/21 Rx transdermal patch (Nicoderm CQ) apixaban 2.5 mg tablet (Eliquis) 2.5 mg PO BID #60 tab 07/13/21 07/16/21 Rx brimonidine 0.1 % eye drops 1 drp OPB BID 07/16/21 07/16/21 History Patient History Medical History (HFpEF) heart failure with preserved ejection fraction AAA (abdominal aortic aneurysm) Acid reflux Arthritis Blindness of left eye BPH (benign prostatic hyperplasia) Chronic anticoagulation Chronic kidney disease, stage 3 (moderate) Chronic obstructive pulmonary disease Chronic respiratory failure Complex renal cyst Constipation Coronary artery disease Degenerative joint disease of knee Dyslipidemia Glaucoma History of myocardial infarction Hypertension Irritable bowel syndrome Lumbar spinal stenosis 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) Mild cognitive impairment JOHNNY (obstructive sleep apnea) Paroxysmal atrial fibrillation Prediabetes Pulmonary nodule Tachycardia-bradycardia syndrome Vitamin D deficiency Surgical History H/O aortic aneurysm repair (01/2004) endovascular repair w/ stent graft History of aortic aneurysm repair (11/05/17) onset: November 05, 2017 Previous repair, 2003; EVAR, Type ll endoleak in October 2017 History of coronary artery bypass graft (~1992) S/P ablation of ventricular arrhythmia (2012) for SVT S/P cardiac pacemaker procedure (02/11/19) [place] dual-chamber S/P cataract surgery S/P coronary artery stent placement Family History Father Cardiac disorder Coronary heart disease Heart disease Mother Gallbladder disease Lung cancer Other Myocardial infarction Denies family history of Ovarian cancer Prostate cancer Breast cancer Colorectal cancer Social History Smoking Status: Current some day smoker Tobacco Type: Cigarettes Cigarettes Per Day: 5 cigars per day; 5-6 cigarettes a day; daily smokeless tobacco use; Hx Alcohol Use: Yes Alcohol type: beer Alcohol Intake Frequency: Monthly or Less Hx Substance Use: No Preferred Language: Croatian Communication Ability: Effective Communication Ability Comment: TE-MOAK Visual Impairment: Diminished Hearing Ability: Hard of Hearing Chocolatier Required: No Beliefs That Will Affect Care: None marital status: Current Living Situation: Family current occupational status: retired Feels Safe at Home: Yes Safety Concerns: Feels Safe At This Time Childhood Exposure to Second-Hand Smoke: Yes Diet Comment: regular caffeine: Yes during the past year weight has: remained stable Dental Care, Regularly: No Physical Activity Frequency: Does not Exercise Physical Activity Frequency Comment: due to physical activity Seatbelt Use: always Sunscreen Use: No Assistive Devices: Oxygen - Continuous Physical Exam Physical Exam: Patient is laying down with oxygen mask on. He has some labored breathing but is in NAD. He is AA&O. LLE shortened and externally rotated compared to RLE. Skin is in tact without ecchymosis, erythema warmth noted Patient non tender to palpate lateral aspect of left thigh Pt has full ROM of all 5 digits and ankle. He is able to slightly flex his knee to 5 degrees. Strength 5/5 with DF/PF Sensation intact distally 2+ DP pulse present Calf supple and non tender. Results & Data ([facility]) Vital Signs (Past 12 Hours) Vital Signs Temp Pulse Pulse Resp BP BP Pulse Ox 07/16/21 07:16 75 18 95 07/16/21 07:00 37 C 74 18 130/75 07/16/21 06:44 75 18 133/78 93 07/16/21 06:30 97 07/16/21 05:50 76 18 113/76 95 07/16/21 04:00 70 18 99/48 L 94 07/16/21 02:00 20 121/73 91 07/16/21 00:30 70 20 122/66 96 07/15/21 23:37 89 L 07/15/21 23:31 91 07/15/21 22:45 94 07/15/21 22:30 36.6 C 76 24 111/54 L 94 Pulse Ox 07/16/21 07:16 07/16/21 07:00 98 07/16/21 06:44 07/16/21 06:30 07/16/21 05:50 07/16/21 04:00 07/16/21 02:00 07/16/21 00:30 07/15/21 23:37 07/15/21 23:31 07/15/21 22:45 07/15/21 22:30 Diagnostic Findings Imaging reviewed that showed left proximal intertrochanteric femur fracture, displaced, with early healing
--- NOTE | 2021-07-16 09:47 | XCELERA ---
[id number]
--- NOTE | 2021-07-16 09:49 | Electrocardiogram Report ---
Test Reason : Blood Pressure : / mmHG Vent. Rate : 076 BPM Atrial Rate : 085 BPM P-R Int : 000 ms QRS Dur : 174 ms QT Int : 462 ms P-R-T Axes : 000 -75 075 degrees QTc Int : 519 ms Sinus rhythm with complete heart block and Ventricular-paced rhythm Abnormal ECG When compared with ECG of 21-SEP-1997 09:08, Electronic ventricular pacemaker has replaced Sinus rhythm Confirmed by Pramod Valdivia ([id number]) on 07/16/2021 9:48:51 AM Referred By: REFERRED SELF Confirmed By:Boom Valdivia
[2021-07-16] MEDS: HEPARIN SOD 5,000 UNIT/0.5 ML VIAL SQ SCH ×3 (09:52→21:19)
[2021-07-16] MEDS: TIMOLOL MALEATE 0.5% OP SOLN 5 ML BTL OP SCH ×2 (09:53→21:18)
[2021-07-16] MEDS: DULoxetine HCL 30 MG CAP PO SCH (09:54)
[2021-07-16] MEDS: ATENOLOL 25 MG TABLET PO SCH (09:54)
[2021-07-16] MEDS: guaiFENesin 600 MG TABCR PO SCH ×2 (09:54→21:16)
[2021-07-16] MEDS: TERAZOSIN HCL 1 MG CAP PO SCH (09:54)
[2021-07-16] MEDS: FINASTERIDE 5 MG TAB PO SCH (09:54)
[2021-07-16] MEDS: FUROSEMIDE 20 MG TAB PO SCH (09:55)
[2021-07-16] MEDS: POTASSIUM CHLORIDE CRTAB 20 MEQ TABCR PO SCH (09:55)
[2021-07-16] MEDS: NICOTINE 14 MG/24 HR PATCH TD SCH (09:55)
[2021-07-16] MEDS: ASPIRIN 81 MG ECTAB PO SCH (10:07)
--- NOTE | 2021-07-16 10:11 | XRay Report ---
XR hip URMILA 2v w pelvis CLINICAL HISTORY: Left hip pain following fall. Hip fracture. COMPARISON STUDY: CT of the abdomen and pelvis March 09, 2021. FINDINGS: Aortoiliac endovascular stent graft is partially imaged. Endovascular coils within bilatera l internal iliac arteries are incidentally noted. Sacroiliac joints and symphysis pubis are intact. N o acute fracture within the pelvis or right hip is noted. Note is made of an acute comminuted displac ed intertrochanteric fracture of the left femur. Fracture is displaced at least 3.4 cm, best shown on lateral projection. Angulation at the level of the fracture is noted. Moderate bilateral hip osteoph ytosis present. There is extensive vascular calcification. IMPRESSION: Acute comminuted displaced intertrochanteric fracture of the left femur. ACT 112: Negative or not required by law. Electronically signed by: Quincy Merritt M.D. 07/16/2021 10:10 AM
[2021-07-16] MEDS: methylPREDNISolone 40 MG in SYRINGE 0 ML IV SCH ×2 (13:56→21:18)
[2021-07-16] MEDS: AZITHROMYCIN 500 MG in DEXTROSE 5% 250 ML IV SCH (13:58)
[2021-07-16] MEDS ORDERED: methylPREDNISolone 20 MG in SYRINGE 0 ML IV SCH (14:00)
[2021-07-16] MEDS ORDERED: ACETAMINOPHEN 500 MG TAB PO SCH (15:30)
[2021-07-16] MEDS: ACETAMINOPHEN 500 MG TAB PO SCH ×2 (16:00→21:21)
[2021-07-16] MEDS: KETOROLAC TROMETHAMINE 15 MG/ML VIAL IV SCH ×2 (16:00→23:17)
[2021-07-16 16:25] LABS: Hemoglobin 9.7 g/dL (14.0-18.0); Immature Granulocytes # (auto) 0.02 K/uL (0.00-0.02); Immature Granulocytes % (auto) 0.3 %; Lymphocytes % (auto) 9.8 %; Mean Corpuscular Hemoglobin 26.3 pg (25-34); Mean Corpuscular Volume 86.7 fL (80-100); Monocytes # (auto) 0.15 K/uL (0.11-0.59); Monocytes % (auto) 2.5 %; Neutrophils # (auto) 5.33 K/uL (1.4-6.5); Neutrophils % (auto) 87.4 %; Platelet Count 280 K/uL (130-400); RDW Coefficient of Variation 17.8 % (11.5-14.5); RDW Standard Deviation 56.5 fL (36.4-46.3); Red Blood Count 3.69 M/uL (4.7-6.1)
[2021-07-16 16:30] LABS: Mean Corpuscular Hgb Conc 30.3 g/dL (32-36)
[2021-07-16 16:55] LABS: BUN Creatinine Ratio 20.5 (10-20); Creatinine Clr Calc Pharmacy 63.4 ml/min; Est GFR (Non-African American) 56.9 ml/min; Potassium 4.3 mmol/L (3.5-5.1)
--- NOTE | 2021-07-16 17:31 | Communication Note ---
Date of Service: July 16, 2021 Supplemental note written as this provider had extensive communication with patient's family today regarding overall goals of care. Spoke with patient's (Aby), and daughters (Irma and Larisa) about overall goals with regard to Madi's care. There was some confusion on the part of the family with regard to what happens when a patient is made hospice care. They report that when they were discharged from other facility, Madi was not given any medication for pain,agitation, or discomfort. When they saw his oxygen levels dropping, and he was feeling more confused, agitated, and Short of breath, they called the ambulance for the patient to go to the hospital. Per , hospice agency was to come visit today to help with Madi's ADLs, and see if he had other care needs. This provider discussed what hospice care is, the differences between hospice care and radical care, and answered any questions the family had. Also briefly spoke with patient's son, who was upset about the thought of pain medications for breathing rather than more radical treatment options. Patient's daughters and were feeling more like hospice care may be the choice they make. After long discussion with family, patient's ultimately elected to move toward home with home hospice, but with adequate resources at home to maintain patient's comfort when he has episodes of hypoxia (medications such as benzodiazepines, Roxanol). Until discharge, patient is DNR/DNI but is not comfort measures. We will continue treating as COPD exacerbation while awaiting arrangement of home hospice resources. Patient already has a hospital bed at home. Resident Activity Tracking Resident Involvement: Resident Care Provided Care Provided: Adult Hospital Medicine
[2021-07-16] MEDS: SIMVASTATIN 40 MG TAB PO SCH (21:18)
[2021-07-16] MEDS: LATANOPROST 0.005% OP SOLN 2.5 ML BTL OP SCH (21:39)
[2021-07-17] MEDS: HEPARIN SOD 5,000 UNIT/0.5 ML VIAL SQ SCH ×3 (05:45→22:42)
[2021-07-17] MEDS: ACETAMINOPHEN 500 MG TAB PO SCH ×3 (05:45→22:41)
[2021-07-17] MEDS: methylPREDNISolone 40 MG in SYRINGE 0 ML IV SCH ×2 (05:46→11:43)
[2021-07-17] MEDS: KETOROLAC TROMETHAMINE 15 MG/ML VIAL IV SCH ×4 (05:46→23:52)
[2021-07-17 06:33] LABS: Hematocrit (blood only) 31.1 % (42-52); Hemoglobin 9.6 g/dL (14.0-18.0); Immature Granulocytes # (auto) 0.04 K/uL (0.00-0.02); Immature Granulocytes % (auto) 0.4 %; Lymphocytes # (auto) 0.86 K/uL (1.2-3.4); Lymphocytes % (auto) 8.5 %; Mean Corpuscular Hemoglobin 26.4 pg (25-34); Mean Corpuscular Hgb Conc 30.9 g/dL (32-36); Mean Corpuscular Volume 85.7 fL (80-100); Mean Platelet Volume 9.9 fL (7.4-10.4); Monocytes # (auto) 0.35 K/uL (0.11-0.59); Monocytes % (auto) 3.5 %; Neutrophils # (auto) 8.87 K/uL (1.4-6.5); Neutrophils % (auto) 87.6 %; Platelet Count 292 K/uL (130-400); RDW Coefficient of Variation 17.9 % (11.5-14.5); RDW Standard Deviation 56.3 fL (36.4-46.3); Red Blood Count 3.63 M/uL (4.7-6.1); White Blood Count 10.12 K/uL (4.8-10.8)
[2021-07-17 06:59] LABS: BUN Creatinine Ratio 26.2 (10-20); Calcium 8.9 mg/dl (8.5-10.1); Creatinine Clr Calc Pharmacy 56.6 ml/min; Est GFR (African American) 58.1 ml/min; Est GFR (Non-African American) 50.1 ml/min; Potassium 4.1 mmol/L (3.5-5.1)
[2021-07-17] MEDS: ALBUT/IPRATROP 3MG/0.5MG NEB 3 ML VIAL NEB SCH ×4 (07:15→19:44)
[2021-07-17] MEDS: SODIUM CHLOR 7% 4 ML NEB NEB SCH ×2 (07:16→19:44)
[2021-07-17] MEDS: DULoxetine HCL 30 MG CAP PO SCH (07:40)
[2021-07-17] MEDS: POTASSIUM CHLORIDE CRTAB 20 MEQ TABCR PO SCH (07:40)
[2021-07-17] MEDS: ASPIRIN 81 MG ECTAB PO SCH (07:40)
[2021-07-17] MEDS: FINASTERIDE 5 MG TAB PO SCH (07:40)
[2021-07-17] MEDS: NICOTINE 14 MG/24 HR PATCH TD SCH (07:41)
[2021-07-17] MEDS: ATENOLOL 25 MG TABLET PO SCH (07:41)
[2021-07-17] MEDS: TERAZOSIN HCL 1 MG CAP PO SCH (07:41)
[2021-07-17] MEDS: guaiFENesin 600 MG TABCR PO SCH ×2 (07:42→20:10)
[2021-07-17] MEDS: TIMOLOL MALEATE 0.5% OP SOLN 5 ML BTL OP SCH ×2 (07:43→20:10)
[2021-07-17] MEDS: FUROSEMIDE 20 MG TAB PO SCH (07:44)
[2021-07-17] MEDS ORDERED: FUROSEMIDE INJ 20 MG/2 ML VIAL IV SCH (09:00)
[2021-07-17] MEDS ORDERED: AZITHROMYCIN 500 MG in DEXTROSE 5% 250 ML IV SCH (09:00)
[2021-07-17] MEDS ORDERED: FUROSEMIDE 20 MG TAB PO SCH (09:00)
[2021-07-17] MEDS: AZITHROMYCIN 500 MG in DEXTROSE 5% 250 ML IV SCH (11:42)
--- NOTE | 2021-07-17 17:06 | Hospitalist Progress Note ---
Date of Service July 17, 2021 Assessment & Plan (1) Acute and chronic respiratory failure with hypoxia: Plan: 85 y/o M w/ PMHx of end-stage COPD, pacemaker, CKD3, pAF, HFpEF, CAD s/p CABG, JOHNNY, HTN, HLD, AAA who presents w/ worsened dyspnea since yesterday and has had increased O2 requirement, requiring more than the max of 10L he is able to use at home. Acute on chronic respiratory failure secondary to COPD exacerbation -Currently treating his COPD exacerbation * Zithromax 500 mg x 3 days (stopped Zosyn that was given on admission) * Albuterol nebulizer 4 times daily * IV methylprednisolone 40 mg every 8 hourschanged today to every 12 hours Delirium -Likely multifactorial; leading suspicion that patient's altered mental status is due to poorly controlled pain following the patient's hip fracture -In addition to adjusting patient's pain regimen: * IV Haldol every 12 hours as needed for severe agitation Goals of care/hospice -After discussions with patient's , plan was made to discharge patient to hospice care with enough medications to adequately manage patient's pain symptoms. Patient's understood and in agreement. -Currently awaiting hospice care; until then, patient is DNR/DNI Hip fracture -Occurred prior to this admission; orthopedic surgery was consulted, however, patient was deemed a poor candidate due to end-stage COPD, 10 L oxygen requirement. * Tylenol 1000 mg p.o. every 8 hours * IV Toradol 15 mg every 6 hours Chronic anticoagulation * Continue home Eliquis Dispo: Awaiting hospice care set up; med telemetry Code: DNR/DNI FEN/GI: Heart healthy DVT Prophylaxis: Heparin SQ every 8 hours (2) Hip fracture: Plan: No pain to palpation of hips. XR pelvis. Consult ortho. (3) Chronic anticoagulation: Plan: Home eliquis held while awaiting ortho eval. (4) Chronic kidney disease, stage 3 (moderate): Plan: Avoid nephrotoxic agents. Cr at baseline. (5) Paroxysmal atrial fibrillation: Plan: Not currently in afib. Ventricular pacemaker paced. (6) History of coronary artery bypass graft: Plan: Stable (7) Hypertension: Plan: Continue home regimen except hold lisinopril; reviewed blood pressures. CKD at baseline, but will be diuresing. (8) Macular degeneration: Plan: Continue home eyedrops. Plan: FEN: low NA, HH. No IV fluids. ppx: holding home eliquis. SQ heparin 5000u q8h for dvt ppx only while awaiting orhto eval. code: DNR/DNI dispo: med tele Admission and Anticipated Discharge Date Admission Date: July 16, 2021 Supervising Physician Co-Signing Physician Notes Patient seen and examined independently of PGY-1 Dr. Wolf. Agree with history, exam findings, assessment and plan of care as outlined. In brief, Mr. Valencia is an 85 year old male with history significant for end-s tage COPD, CKD, pAF, HFpEF, JOHNNY, HTN and recent displaced left intertrochanteric hip fracture admitted with acute hypoxic respiratory failure. Wants to get out of bed. Not interested in eating lunch or breakfast. VS and nursing notes reviewed. Heart with regular rate and rhythm. No lower extremity edema. Breathing comfortably on non-rebreather. No accessory muscle use. Diminished breath sounds throughout. No wheezes, ronchi, or rales. Hip exam deferred given sub-acute fracture. Oriented to self, but not to place. Labs and imaging reviewed. 1. Acute hypoxic respiratory failure in the setting of known chronic respiratory failure/end-stage COPD. Improving. COPD exacerbation vs post-COVID inflammation. Titrate O2 to O2 sats 88-92%. Continue with methylpred and azithromycin. Dr. Quintana spoke with family (daughters, son, and ) regarding patients prognosis and goals of care. 2. Left intertrochanteric fracture. Subacute. Displaced. Poor surgical candidate given respiratory status. 3. Goals of care. Dr. Quintana spoke with patients family (, son, daughters). In agreement that they would want him home with comfort measures/hospice. Appreciate care management assistance with getting him set up with home hospice. Dispo: plans for discharge home tomorrow with hospice care. Subjective No acute events overnight. Patient's oxygen increased to 10 L after desaturation to 89% overnight. Patient was naked in bed, with his hospital gown strewn on the floor. Upon this physician's entering the room, the patient became verbally aggressive and abusive. Patient then began speaking angrily to a pillow by the window. When directly asked if he was speaking to, he responded that he was speaking to his , who was not in the room. Per nursing, he did not have any hallucinations through the night. Review of Systems Review of Systems: All systems reviewed & are unremarkable except as noted in HPI & below Physical Exam Constitutional: WD/WN, vitals as above Respiratory: Auscultation: + crackles and + rhonchi Cardiovascular: RRR, no murmur, no edema Results & Data Results & Data ([facility]) Vital Signs (Past 12 Hours) Vital Signs Temp Pulse Pulse Resp BP Pulse Ox 07/17/21 15:01 36.4 C L 72 18 130/86 94 07/17/21 14:27 81 20 90 07/17/21 11:11 36.3 C L 78 20 108/68 92 07/17/21 10:16 21 90 07/17/21 07:44 36.4 C L 70 18 121/82 88 L 07/17/21 07:16 73 21 89 L 07/17/21 07:14 73 Resident Activity Tracking Resident Involvement: Resident Care Provided Care Provided: Adult Hospital Medicine
[2021-07-17] MEDS ORDERED: HALOPERIDOL LACTATE 5 MG/ML 1 ML VIAL IM PRN (18:33)
[2021-07-17] MEDS: SIMVASTATIN 40 MG TAB PO SCH (20:10)
[2021-07-17] MEDS: LATANOPROST 0.005% OP SOLN 2.5 ML BTL OP SCH (20:10)
[2021-07-18] MEDS ORDERED: methylPREDNISolone 40 MG in SYRINGE 0 ML IV SCH
[2021-07-18] MEDS: HEPARIN SOD 5,000 UNIT/0.5 ML VIAL SQ SCH (05:32)
[2021-07-18] MEDS: ACETAMINOPHEN 500 MG TAB PO SCH (05:47)
[2021-07-18] MEDS: KETOROLAC TROMETHAMINE 15 MG/ML VIAL IV SCH (05:47)
--- NOTE | 2021-07-18 07:20 | Discharge Summary ---
Date of Service July 18, 2021 Admission HPI Per Admitting Provider 85 y/o M w/ PMHx of end-stage COPD, pacemaker, CKD3, pAF, HFpEF, CAD s/p CABG, JOHNNY, HTN, HLD, AAA who presents w/ worsened dyspnea since yesterday and has had increased O2 requirement, requiring more than the max of 10L he is able to use per home device. He had been sent home on 10L after discharge from [facility] for covid pneumonia. Initial plan was consideration of home hospice in the future, partly because had L hip fracture and was thought not amenable to surgery in consideration of his resp status. Patient had improvement in resp status at home and had exacerbation yesterday. Patient denies aspirating. His previous baseline was 2-3L home O2. He has had covid immunization x2. Clarification per daughter Kelly by phone. 2 wks of 10L O2 since the [facility] discharge. Patient States has not smoked in 1 month. Admission Exam Per Admitting Provider General:not alert .NAD. Cooperative. HEENT: Atraumatic, normocephalic. EOMI. Chronic blindness. R pupil fixed. L pupil could not visualize. cataracts. states has macular degeneration and glaucoma. + significant JVD and hepatojugular reflux on R. Pulm: Quite diminished lung sounds. Slight coarseness on exp. R side w/ transmitted upper airway sounds and some rhonchi on expiration. No respiratory distress. Cardiac: RRR, -mrg. Radial pulses intact and symmetrical. No LE edema. Abdominal: Nontender, nondistended, soft. Msk: Moving all extremities. Neuro: Sensation of extremities intact. Principal Diagnosis acute hypoxic respiratory failure, COPD, hip fracture Discharge Exam Constitutional WD/WN, vitals as above Respiratory saturating well on 6LNC. lungs with diminished breath sounds, some wheezes throughout Cardiovascular RRR, no murmur, no edema Gastrointestinal (Abdomen) normal bowel sounds, soft, nontender, no hepatosplenomegaly Skin no rashes, warm and dry Psychiatric neither alert nor oriented asking for Aby his Discharge Data Allergies Allergy/AdvReac Type Severity Reaction Status Date / Time oxycodone Allergy Severe SHORT OF Verified 07/16/21 00:19 BREATH Consultations 07/16/21 00:22 ED Decision to Admit Stat Hospital Course (1) Acute and chronic respiratory failure with hypoxia: 85 yo M PMHx end-stage COPD, pacemaker, CKD3, AFib, HFpEF, CAD s/p CABG, JOHNNY, HTN, HLD, AAA admitted for acute hypoxic respiratory failure, and was discharged on hospice. Acute on chronic respiratory failure secondary to COPD exacerbation: - Received IV steroids, azithromycin, nebulizers in the hospital. - Will discharge on steroid taper for comfort. - Can continue nebulizers/inhalers as needed for sensation of SOB at home. Delirium -Likely multifactorial; pain from hip fracture, hospital setting, hypoxia as he removes his mask often. Goals of care/hospice: - After discussions with patient's , plan was made to discharge patient to hospice care with enough medications to adequately manage patient's pain symptoms. Patient's and daughters understood and are in agreement with plan. - Discharged with prescriptions for morphine, Ativan, glycopyrrolate, Phenergan, and Haldol. Hip fracture: - Occurred prior to this admission; poor surgical candidate due to end-stage COPD. - Tylenol and morphine as needed. Depression: - Continue Cymbalta. Macular degeneration: - Continue eyedrops. AFib: - Medications discontinued due to hospice. Dispo: home with home hospice (2) Hip fracture: (3) Chronic anticoagulation: (4) Chronic kidney disease, stage 3 (moderate): (5) Paroxysmal atrial fibrillation: (6) History of coronary artery bypass graft: (7) Hypertension: (8) Macular degeneration: Total Time Total Time Spent Total Time Spent (In Minutes): see attending attestation Discharge Plan Discharge Items Patient Disposition: Hospice - Home Reason For Visit: ACUTE ON CHRONIC HYPOXIC RESPIRATORY FAILURE Discharge Diagnosis: acute hypoxic respiratory failure Condition on Discharge: Fair Activity: Per Instructions section Non-emergency contact: Primary Care Provider Call non-emergency contact if: you have any medication questions and your pain is not controlled Follow-up/Referrals: Renetta Chirinos DO [Primary Care Provider] - 07/31/21 9:20 am Diet: Regular Addtl Attending Provider Instructions: Your family member was admitted to the hospital for difficulty with breathing. We gave him steroids and medications to help his breathing. After long discussion with the family as a whole, the decision was made to continue hospice care and get Edward home. This means that his care focus is now on comfort, rather than radical hospital interventions. He is ready for discharge today with the following medications, which were sent to the [facility] in [place]: 1) Roxanol (oral morphine) - this is a medication that is for pain. It is also used when people are having difficulty with breathing, to decrease "air hunger", or the need for as much oxygen to be comfortable. If his oxygen levels are going low or he looks uncomfortable, you can give him his home nebulizer, and give him 2 milligrams of morphine (0.5 milliliters). Please ask the pharmacist for a syringe with milliliter numbers on it to be able to measure the medicine. 2) Ativan (lorazepam) - This medication is in case Madi becomes anxious or distressed. The dose is 0.5 milligrams every 4 hours as needed for anxiety or agitation. 3) Haloperidol - this medication can also be given if Madi becomes agitated at home. You can give him 0.5 milligrams every 6 hours as needed for agitation. This can be used with the Ativan if needed. 4) Phenergan (promethazine) - this is a medication for nausea. If Madi looks nauseated or is throwing up, you can give this medication. The dose is 12.5 milligrams every 8 hours as needed. 5) Glycopyrrolate - This medication is to decrease oral secretions so that his lungs do not get fluid in them. This can be given every 8 hours as needed. 6) Madi was prescribed a steroid taper for his COPD to help him breathe better during this exacerbation. He will be on a taper, meaning the dose changes every two days. He will start at 40 milligrams daily for two days, then 30mg, then 20mg, then 10mg. Once it is gone, he will not take it anymore. 7) Regarding his previous medications, he should STOP all previous home medications except his inhalers for breathing, his eye drops, his Cymbalta, and his allergy medications. He should STOP his blood thinner medicines (aspirin and Eliquis), his blood pressure medicines, and his water pills (furosemide). Please call his primary care doctor and/or the hospice agency if Madi has any other care needs. Pending Studies at Discharge: No Stand-Alone Forms: My [facility] [email or web address] Medications and DC Order Prescriptions: New morphine 20 mg/5 mL (4 mg/mL) solution 5 mg PO Q4H Qty: 100 RF: 0 lorazepam 0.5 mg tablet 0.5 mg PO Q4H PRN (Reason: air hunger, anxiety) Qty: 12 RF: 0 promethazine 12.5 mg suppository 12.5 mg [place] TID PRN (Reason: nauea, vomti) Qty: 12 RF: 0 haloperidol 0.5 mg tablet 0.5 mg PO Q6H Qty: 10 RF: 0 glycopyrrolate 1 mg/5 mL (0.2 mg/mL) solution 1 mg PO TID Qty: 50 RF: 0 prednisone 10 mg tablet See Rx Instructions .ROUTE .COMPLEX Qty: 20 RF: 0 Continued loratadine [Claritin] 10 mg tablet 10 mg PO DAILY Qty: 90 RF: 2 duloxetine 30 mg capsule,delayed release(DR/EC) 30 mg PO DAILY Qty: 90 RF: 3 fluticasone propionate 50 mcg/actuation spray,suspension 2 spray intranasal DAILY Qty: 48 RF: 2 (DME) nebulizers Misc See Rx Instructions .Route Qty: 1 RF: 0 latanoprost 0.005 % drops 1 drp ophthalmic (eye) QPM Qty: 7.5 RF: 2 (DME) Mattress (Air or other) Misc See Rx Instructions .Route Qty: 1 RF: 0 (DME) Hospital Bed Homecare Misc See Rx Instructions .Route Qty: 1 RF: 0 nicotine [Nicoderm CQ] 14 mg/24 hr patch 24 hour 1 patch transdermal DAILY Qty: 28 RF: 0 timolol maleate [Timoptic] 0.5 % drops 1 drops OP BID RF: 0 sodium chloride 5 % drops 1 drops OPL BID PRN (Reason: dry eye(s)) RF: 0 albuterol sulfate [Ventolin HFA] 90 mcg/actuation HFA aerosol inhaler 1 puffs INH Q6H PRN (Reason: Shortness Of Breath) RF: 0 ipratropium-albuterol 0.5 mg-3 mg(2.5 mg base)/3 mL solution for nebulization 3 ml inhalation Q6H PRN (Reason: shortness of breath or wheezing) RF: 0 (DME) Oxygen Home Liters Per Minute See Dose Instructions .ROUTE .MEDSUPPLY Qty: 1 RF: 0 nystatin 100,000 unit/gram cream 1 applic TOP .COMPLEX Qty: 30 RF: 5 diclofenac sodium [Voltaren Arthritis Pain] 1 % gel 4 g topical QID PRN (Reason: pain) Qty: 100 RF: 2 brimonidine 0.1 % drops 1 drp OPB BID RF: 0 menthol-zinc oxide [Calmoseptine] 0.44-20.6 % ointment See Rx Instructions .ROUTE .COMPLEX PRN (Reason: Skin Irritation) RF: 0 Discontinued simvastatin 40 mg tablet 40 mg PO QPM Qty: 90 RF: 0 finasteride [Proscar] 5 mg tablet 5 mg PO DAILY Qty: 30 RF: 5 atenolol 25 mg tablet 25 mg PO DAILY Qty: 90 RF: 3 lisinopril 5 mg tablet 5 mg PO DAILY Qty: 90 RF: 3 terazosin 2 mg capsule 2 mg PO DAILY Qty: 90 RF: 1 omeprazole 40 mg capsule,delayed release(DR/EC) 40 mg PO DAILY Qty: 90 RF: 3 magnesium oxide 500 mg tablet 500 mg PO DAILY Qty: 30 RF: 0 furosemide 20 mg tablet 20 mg PO DAILY Qty: 30 RF: 2 potassium chloride 20 mEq tablet extended release 20 meq PO DAILY Qty: 30 RF: 2 hydrocodone-acetaminophen 5-325 mg tablet 1 tab PO Q8H PRN (Reason: pain) Qty: 30 RF: 0 Eliquis 2.5 mg tablet 2.5 mg PO BID Qty: 60 RF: 5 aspirin 81 mg tablet,delayed release (DR/EC) 81 mg PO DAILY RF: 0 cholecalciferol (vitamin D3) 1,000 unit tablet 4,000 units PO DAILY RF: 0 Trelegy Ellipta 100-62.5-25 mcg blister with device 1 inh inhalation DAILY RF: 0 nitroglycerin [Nitrostat] 0.4 mg Tablet, Sublingual 0.4 mg sublingual DIRECTED PRN (Reason: Chest Pain) RF: 0 Discharge Orders: Discharge Order (Routine); Ordered 07/18/21 Ordered By: Glenna Quintana Admission Data Admit Date/Time: 07/16/21 04:45 Attending Provider: Laure Alvarez Admit Provider: Randy Duffy Primary Care Provider: Renetta Chirinos Other Providers: Pasquariello,Blair D Other Interventions: Discharge Summary Assessment (RN) Last Done: 07/18/21 12:00 Supervising Physician Co-Signing Physician Notes Patient seen and examined independently of PGY-3 Dr. Quintana. Agree with history, exam findings, assessment and plan of care as outlined. In brief, Mr. Valencia is an 85 year old male with history significant for end- stage COPD, CKD, pAF, HFpEF, JOHNNY, HTN and recent displaced left intertrochanteric hip fracture admitted with acute hypoxic respiratory failure. No complaints today. VS and nursing notes reviewed. Heart with regular rate and rhythm. No lower extremity edema. Breathing comfortably on non-rebreather. No accessory muscle use. Diminished breath sounds throughout. No wheezes, ronchi, or rales. Hip exam deferred given sub-acute fracture. Oriented to self, but not to place. Labs and imaging reviewed. 1. Acute hypoxic respiratory failure in the setting of known chronic respiratory failure/end-stage COPD. Improving. COPD exacerbation vs post-COVID inflammation. Titrate O2 to O2 sats 88-92%. Continue with methylpred and azithromycin. Dr. Quintana spoke with family (daughters, son, and ) regarding patients prognosis and goals of care. 2. Left intertrochanteric fracture. Subacute. Displaced. Poor surgical candidate given respiratory status. 3. Goals of care. Dr. Quintana spoke with patients family (, son, daughters). In agreement that they would want him home with comfort measures/hospice. Appreciate care management assistance with getting him set up with home hospice. Dispo: Discharge home today with home hospice. Prescriptions for home pack were sent to [facility] in [place]. I personally spent 35 minutes discharge planning for this patient. Resident Activity Tracking Resident Involvement: Resident Care Provided Care Provided: Adult Hospital Medicine
[2021-07-18] MEDS: ALBUT/IPRATROP 3MG/0.5MG NEB 3 ML VIAL NEB SCH ×2 (07:24→10:52)
[2021-07-18] MEDS: SODIUM CHLOR 7% 4 ML NEB NEB SCH (07:24)
[2021-07-18] MEDS: TIMOLOL MALEATE 0.5% OP SOLN 5 ML BTL OP SCH (09:00)
[2021-07-18] MEDS: ASPIRIN 81 MG ECTAB PO SCH (11:14)
[2021-07-18] MEDS: FUROSEMIDE 20 MG TAB PO SCH (11:15)
[2021-07-18] MEDS: DULoxetine HCL 30 MG CAP PO SCH (11:15)
[2021-07-18] MEDS: FINASTERIDE 5 MG TAB PO SCH (11:15)
[2021-07-18] MEDS: ATENOLOL 25 MG TABLET PO SCH (11:15)
[2021-07-18] MEDS: guaiFENesin 600 MG TABCR PO SCH (11:16)
[2021-07-18] MEDS: POTASSIUM CHLORIDE CRTAB 20 MEQ TABCR PO SCH (11:16)
[2021-07-18] MEDS: TERAZOSIN HCL 1 MG CAP PO SCH (11:16)
--- NOTE | 2021-07-23 20:30 | Billing Data ---
Date of Service July 23, 2021 Coding Level of Care Code INT OBSERVATION CARE 70M LVL 3
== END 2021-07-18 13:29 | disposition hospice, home (50) ==
LOC: ED 22:43 → EDINP 22:43 → SUATTDRO 07-16 04:45 → EDINP 07-16 06:35 → 2N 07-16 15:56